=== PATIENT | male | born 1975 | race Caucasian/White ===

== ENCOUNTER 2018-06-05 22:32 | Emergency (ER) | payer SELFPAY ==
[~2018-06-05] VITALS: Ht 165.1 cm; Wt 91.0 kg
[2018-06-05] MEDS ORDERED: ASPIRIN 81MG TABLET PO ONE (23:15)
[2018-06-05 23:45] LABS: BASOPHILS % 1.4 % (0.0-2.0); EOSINOPHILS % 7.9 % (0.0-5.0); HEMATOCRIT. 41.6 % (42.0-52.0); HEMOGLOBIN. 14.7 g/dL (14.0-18.0); LYMPHOCYTES % 45.2 % (20.0-50.0); MEAN CORPUSCULAR HEMOGLOBIN 31.5 pg (28.0-32.0); MEAN CORPUSCULAR VOLUME 88.9 fL (80.0-94.0); MEAN PLATELET VOLUME 7.6 fl (7.4-10.4); MONOCYTES % 11.8 % (2.0-8.0); NEUTROPHILS % 33.7 % (40.0-76.0); PLATELET 273 x1000/uL (130-400); RED BLOOD CELL COUNT 4.68 mill/uL (4.7-6.1); RED CELL DISTRIBUTION WIDTH 13.6 % (11.6-14.6)
[2018-06-05 23:47] LABS: CHLORIDE 106 mEq/L (98-107)
[2018-06-05] MEDS: NITROGLYCERIN 0.4MG TABLET SL SL PRN (23:57)
[2018-06-06 00:01] LABS: INR 1.1; PROTHROMBIN TIME 11.2 sec (9.6-11.0)
[2018-06-06] MEDS: NITROGLYCERIN 0.4MG TABLET SL SL PRN (00:05)
[2018-06-06 05:27] VITALS: BP 117/52
== END 2018-06-06 05:37 | disposition home or self-care (01) ==
LOC: ER 22:32 → CANBEDREQ 06-06 06:11
DX: R07.89 Other chest pain (principal); F10.129 Alcohol abuse with intoxication, unspecified; Y90.9 Presence of alcohol in blood, level not specified; M79.671 Pain in right foot; D64.9 Anemia, unspecified
CPT/HCPCS: 36415; 71045; 73630; 83880; 84484; 99284